=== PATIENT | female | born 1935 | race Caucasian/White ===

== ENCOUNTER 2016-09-16 09:23 | Day surgery (SDC) | payer MEDICARE, OTHER ==
[~2016-09-16 09:23] MED LIST: LACTATED RINGERS 1,000 ML IV SCH
[2016-09-16] MEDS ORDERED: LACTATED RINGERS 1,000 ML ONE (10:11)
[2016-09-16] MEDS ORDERED: IV START KIT ONE (10:12)
[2016-09-16] MEDS ORDERED: PROPOFOL 60 ML IV ONE (10:37)
[2016-09-16] MEDS ORDERED: FENTANYL 100 MCG/2 ML VIAL ONE (10:37)
[2016-09-16] MEDS ORDERED: LIDOCAINE Viscous 2% 15 ML UDCUP ONE (11:00)
[2016-09-16 16:11] LABS: HELICOBACTER PYLORII DETECTION NEGATIVE (NEGATIVE)
--- NOTE | 2016-09-21 14:39 | SURGPATH ---
[facility] [address] [place] [id number] Patient Name: PRAMOD WASHINGTON MR#: [id number] : 1935 Gender: F Specimen #: [id number] Collected: 09/16/2016 Received: 09/18/2016 Reported: 09/21/2016 Submitting Phys: SANDHYA HAYS Copy To Phys: EMMANUEL SCHULTZ NATASHA M [facility] Clinical History / Pre-Operative Diagnosis: Heme + stool, iron deficiency anemia, nausea, heartburn, rule out gastritis and eliceo Specimen Source / Surgical Procedure Performed: #1 antral biopsy, #2 esophagus biopsy at 34 cm Interpretation: 1. STOMACH, ANTRUM, BIOSPASR: - NO DIAGNOSTIC ABNORMALITIES - NO HELICOBACTER ORGANISMS SEEN ON ROUTINE STAIN 2. ESOPHAGUS, 34 CM, BIOPSY: - ACTIVE CANDIDAL ESOPHAGITIS Electronically Signed Out Penelope Newberry M.D. Gross Description: 1. The specimen is received in formalin labeled with the patient's name and "antrum". The specimen consists of a single fragment of valdez soft tissue, 0.5 cm in greatest dimension. Submitted in toto in one cassette 2. The specimen is received in formalin labeled with the patient's name and "esophagus 34 cm". The specimen consists of three fragments of white soft tissue, 0.6 x 0.6 x 0.1 cm in aggregate. Submitted in toto in one cassette. Yuridia [place] Microscopic Description: Part 1: Sections show gastric antral and oxyntic mucosa with overall intact architecture. No significant active or chronic inflammation is seen. No Helicobacter organisms are seen on routine stain. No dysplasia or malignancy is seen. Part 2: Detached strips of squamous epithelium show increased intraepithelial neutrophils. A PAS stain shows fungal pseudohyphae and spores consistent with Eliceo in superficial parakeratotic epithelium. No intestinal metaplasia or dysplasia seen. 1: 03904 2: 36033, 93343 B37.81
--- NOTE | 2016-09-22 08:20 | PROCNOTE ---
Renae Garcia : 1935 [id number] DATE: 09/22/2016 This 81-year-old female patient within the practices of Dr. Magan Barajas and Dr. Caroline Mendoza underwent upper endoscopy and colonoscopy on September 16 for anemia, heartburn, nausea, and hemoccult positive stool. The upper endoscopy demonstrated significant esophagitis, gastritis, and esophageal biopsies are positive for the presence of eliceo. The colonoscopy preparation was inadequate for a full inspection to exclude minute abnormalities. Diflucan 100 mg daily for 10 days have been added to her prescription of Famotidine. Medical follow up will be by Dr. Magan Barajas and Dr. Caroline Mendoza. JOB: [id number] CC: Dr. Magan Mendoza
== END 2016-09-16 12:41 | disposition home or self-care (01) ==
LOC: SDC 09:23
PROVIDERS: ATTEND Internal Medicine Gastroenterology
PROC: 0DB38ZX Excision of Lower Esophagus, Via Natural or Artificial Opening Endoscopic, Diagnostic (ICD-10-PCS; principal; 2016-09-16)
PROC: 0DB68ZX Excision of Stomach, Via Natural or Artificial Opening Endoscopic, Diagnostic (ICD-10-PCS; 2016-09-16)
PROC: 0DJD8ZZ Inspection of Lower Intestinal Tract, Via Natural or Artificial Opening Endoscopic (ICD-10-PCS; 2016-09-16)
DX: D50.9 Iron deficiency anemia, unspecified (principal); B37.81 Candidal esophagitis; K29.70 Gastritis, unspecified, without bleeding; K29.80 Duodenitis without bleeding; K57.30 Diverticulosis of large intestine without perforation or abscess without bleeding; J43.9 Emphysema, unspecified; M06.9 Rheumatoid arthritis, unspecified; M35.00 Sjogren syndrome, unspecified; E03.9 Hypothyroidism, unspecified; E78.5 Hyperlipidemia, unspecified; I34.0 Nonrheumatic mitral (valve) insufficiency
CPT/HCPCS: 43239; 45378; 87081; J3010; A9270; J7120